=== PATIENT | male | born 1970 | race Caucasian/White ===

== ENCOUNTER 2017-01-03 19:30 | Emergency (ER) | payer OTHER ==
[~2017-01-03] VITALS: Ht 188 cm; Wt 111.1 kg
[2017-01-03] MEDS ORDERED: LAMICTAL5 MG (19:53)
[2017-01-03] MEDS ORDERED: NEXIUM40 MG PO (19:54)
[2017-01-03] MEDS ORDERED: CELEXA10 MG (19:55)
[2017-01-03] MEDS ORDERED: IBUPROFEN 800800 M1 PO (19:56)
[2017-01-03] MEDS ORDERED: TYLENOL325 MG PO (19:57)
[2017-01-03] MEDS ORDERED: NAPROSYN500 MG PO (20:27)
[2017-01-03] MEDS ORDERED: PREDNISONE 20 M20 MG PO (20:27)
[2017-01-03 20:35] VITALS: BP 141/77
== END 2017-01-03 20:38 | disposition home or self-care (01) ==
LOC: ER 19:30
DX: M70.21 Olecranon bursitis, right elbow (principal); Y93.89 Activity, other specified; F17.210 Nicotine dependence, cigarettes, uncomplicated